=== PATIENT | female | born 1945 | race Caucasian/White ===

== ENCOUNTER → 2016-06-27 | Outpatient (CLI) | payer MEDICARE, BC ==
[~2016-06-27] MED LIST: 00186-0372-20 IH; ASPIRIN 32325 MG/TAB PO; ASPIRIN E.C. 8181 MG PO; CELEXA40 MG PO; CITALOPRAM20 MG PO; FORTAMET500 MG PO; GABAPENTIN PO; GABAPENTIN TAB600 MG PO; GABAPENTIN600 MG PO; GLUCOPHAGE1000 MG PO; IMDUR30 MG PO; LIPITOR 80MG80 MG PO; LIPITOR20 MG PO; LIPITOR40 MG PO; LISINOPRIL20 MG PO; LISINOPRIL40 MG PO; METFORMIN HCL500 MG PO; METFORMIN1000 MG PO; METOPROLOL50 MG PO; NEURONTIN600 MG PO; NEURONTIN600 MG/TAB PO; NIASPAN 500MG500 MG PO; NORVASC 5MG5 MG/TAB PO; NORVASC2.5 MG PO; OSTEO-BI-FLEX 21 TAB PO; PEPCID AC20 MG PO; PRIL40 PO; PRO-AIR; PROVENTIL0.09 MG/A1 IH; PROZAC 20MG20 MG PO; PROZAC20 MG PO; PROZAC40 MG PO; REMERON 15M15 MG/TAB PO; REMERON15 MG PO; SINGULAIR10 MG PO; SYMBICORT1 AE2 IH; TOPROL XL25 MG PO; TRAMADOL50 MG PO; ULTRAM 50MG TAB50 MG PO; ULTRAM50 MG PO; VANCOCIN H250 MG/CAP PO; XANAX .25M0.25 MG/TA PO; ZESTRIL40 MG PO; ZOFRAN 4MG T4 MG/TAB PO
== END ==
LOC: COL.RAD 10:33
DX: N28.9 Disorder of kidney and ureter, unspecified (principal)

== ENCOUNTER → 2017-05-07 | Outpatient (CLI) | payer MEDICARE, BC | LOC: MC.RAD 09:12 | DX: Z12.31 Encounter for screening mammogram for malignant neoplasm of breast (principal) ==

== ENCOUNTER 2017-08-31 12:18 | Emergency (ER) | payer MEDICARE, BC ==
[~2017-08-31] VITALS: Ht 162.6 cm; Wt 87.7 kg
[2017-08-31 12:21] VITALS: TEMP 99
[2017-08-31 14:14] LABS: BASO % 0.4 % (0.0-2.0); EOS # 0.1 (0.0-0.7); EOS % 1.5 % (0-4.0); GRAN # 2.7 (1.4-6.5); GRAN % 57.5 % (42.2-75.2); LYMPH # 1.4 (1.2-3.4); LYMPH % 30.5 % (20.0-51.0); MEAN CELL VOLUME 88 fl (80.0-100.0); MEAN CORPUSCULAR HGB CONC 34 g/dl (33.0-37.0); MEAN PLATELET VOLUME 11.3 fl (7.4-10.4); MONO # 0.5 (0.1-0.6); MONO % 9.9 % (1.7-9.3); PLATELET COUNT 163 K/mm3 (130-400); RED BLOOD COUNT 3.94 M/mm3 (4.10-5.30); REDCELL DISTRIBUTION WIDTH-CV 12.5 % (11.5-14.5)
[2017-08-31 14:15] LABS: HEMATOCRIT 34.8 % (37.0-47.0); HEMOGLOBIN 11.8 g/dl (12.5-16.0); MEAN CORPUSCULAR HEMOGLOBIN 30 pg (27.0-31.0)
[2017-08-31 14:28] LABS: ALANINE AMINOTRANSFERASE 33 U/L (9-52); ALBUMIN 3.7 gm/dL (3.5-5.0); ALKALINE PHOSPHATASE 84 U/L (50-136); ANION GAP 12 mmol/L (7-16); AST,SGOT 25 U/L (15-37); BILIRUBIN,TOTAL 0.7 mg/dL (0.0-1.0); BLOOD UREA NITROGEN 12 mg/dL (7-17); CALCIUM 8.9 mg/dL (8.4-10.2); CARBON DIOXIDE 29 mmol/L (22-30); CHLORIDE 100 mmol/L (98-107); CREATININE, serum 1.14 mg/dL (0.52-1.25); GLUCOSE 86 mg/dL (74-106); LIPASE 163 U/L (23-300); POTASSIUM 3.8 mmol/L (3.4-5.0); SODIUM 141 mmol/L (137-145); TOTAL PROTEIN 6.8 gm/dL (6.4-8.2)
[2017-08-31 14:34] LABS: COLLECTION METHOD CLEAN CATCH
[2017-08-31 14:39] LABS: C-REACTIVE PROTEIN < 0.5 mg/dL (0.0-0.9); TROPONIN-I < 0.012 ng/mL (0.000-0.034)
[2017-08-31 14:41] LABS: PH 6 (5-8); SQUAMOUS EPITHELIAL 0-2 /hpf; URINE APPEARANCE Clear; URINE BACTERIA None Seen /hpf; URINE BILIRUBIN Negative (NEGATIVE); URINE BLOOD Negative (NEGATIVE); URINE COLOR Straw; URINE GLUCOSE Negative (NEGATIVE); URINE KETONE Negative (NEGATIVE); URINE LEUKOCYTE ESTERASE Negative (NEGATIVE); URINE NITRATE Negative (NEGATIVE); URINE PROTEIN(semi-quant) Negative (NEGATIVE); URINE RBC 0-2 /hpf; URINE UROBILINOGEN Negative (NEGATIVE)
[2017-08-31] MEDS ORDERED: ZOFRAN 4MG T4 MG/TAB PO (15:26)
[2017-08-31] MEDS ORDERED: ANTIVERT 25MG25 MG PO (15:26)
[2017-08-31 16:00] VITALS: BP 149/82; PULSE 72
== END 2017-08-31 16:17 | disposition home or self-care (01) ==
LOC: COL.ER 12:18
PROVIDERS: Emergency Medicine
DX: R11.2 Nausea with vomiting, unspecified (principal); R42 Dizziness and giddiness; I10 Essential (primary) hypertension; E11.9 Type 2 diabetes mellitus without complications; F41.9 Anxiety disorder, unspecified; F32.9 Major depressive disorder, single episode, unspecified; Z79.84 Long term (current) use of oral hypoglycemic drugs; Z79.82 Long term (current) use of aspirin; Z79.52 Long term (current) use of systemic steroids
CPT/HCPCS: J2060; J2405; J7030

== ENCOUNTER 2017-09-02 08:47 | Emergency (ER) | payer MEDICARE, BC ==
[~2017-09-02] VITALS: Ht 162.6 cm; Wt 87.7 kg
[~2017-09-02 08:47] MED LIST changes: +ANTIVERT 25MG25 MG PO
[2017-09-02] MEDS ORDERED: EFFEXOR 75M75 MG/TAB PO (08:56)
[2017-09-02 09:47] LABS: BASO % 0.4 % (0.0-2.0); EOS # 0.1 (0.0-0.7); EOS % 1.7 % (0-4.0); GRAN # 3.6 (1.4-6.5); GRAN % 68.9 % (42.2-75.2); HEMATOCRIT 33.3 % (37.0-47.0); HEMOGLOBIN 11.7 g/dl (12.5-16.0); LYMPH % 20.1 % (20.0-51.0); MEAN CELL VOLUME 86 fl (80.0-100.0); MEAN CORPUSCULAR HEMOGLOBIN 30 pg (27.0-31.0); MEAN CORPUSCULAR HGB CONC 35 g/dl (33.0-37.0); MEAN PLATELET VOLUME 11.2 fl (7.4-10.4); MONO # 0.5 (0.1-0.6); MONO % 8.7 % (1.7-9.3); PLATELET COUNT 168 K/mm3 (130-400); RED BLOOD COUNT 3.86 M/mm3 (4.10-5.30); REDCELL DISTRIBUTION WIDTH-CV 12.4 % (11.5-14.5)
[2017-09-02 09:58] LABS: ALANINE AMINOTRANSFERASE 38 U/L (9-52); ALBUMIN 3.6 gm/dL (3.5-5.0); ALKALINE PHOSPHATASE 74 U/L (50-136); ANION GAP 11 mmol/L (7-16); AST,SGOT 34 U/L (15-37); BILIRUBIN,TOTAL 0.6 mg/dL (0.0-1.0); BLOOD UREA NITROGEN 12 mg/dL (7-17); CALCIUM 9.2 mg/dL (8.4-10.2); CARBON DIOXIDE 28 mmol/L (22-30); CHLORIDE 101 mmol/L (98-107); CREATININE, serum 1.19 mg/dL (0.52-1.25); GLUCOSE 99 mg/dL (74-106); LIPASE 97 U/L (23-300); POTASSIUM 3.5 mmol/L (3.4-5.0); SODIUM 140 mmol/L (137-145); TOTAL PROTEIN 6.6 gm/dL (6.4-8.2)
[2017-09-02 09:59] LABS: C-REACTIVE PROTEIN < 0.5 mg/dL (0.0-0.9)
[2017-09-02 10:08] LABS: TROPONIN-I < 0.012 ng/mL (0.000-0.034)
[2017-09-02 12:02] VITALS: BP 150/69; PULSE 64; TEMP 99.1
== END 2017-09-02 11:57 | disposition home or self-care (01) ==
LOC: COL.ER 08:47
PROVIDERS: Emergency Medicine
DX: R19.7 Diarrhea, unspecified (principal); R11.10 Vomiting, unspecified; R42 Dizziness and giddiness; I10 Essential (primary) hypertension; E11.9 Type 2 diabetes mellitus without complications; J45.909 Unspecified asthma, uncomplicated; F41.9 Anxiety disorder, unspecified; F32.9 Major depressive disorder, single episode, unspecified; Z79.84 Long term (current) use of oral hypoglycemic drugs; Z79.52 Long term (current) use of systemic steroids; Z79.82 Long term (current) use of aspirin
CPT/HCPCS: J2405; J7030

== ENCOUNTER → 2017-12-17 | Outpatient (CLI) | payer MEDICARE, BC ==
[~2017-12-17] MED LIST changes: +EFFEXOR 75M75 MG/TAB PO
== END ==
LOC: COL.RAD 09:02
DX: R91.8 Other nonspecific abnormal finding of lung field (principal); R59.0 Localized enlarged lymph nodes
CPT/HCPCS: Q9967

== ENCOUNTER → 2018-06-04 | Outpatient (CLI) | payer MEDICARE, BC | LOC: MC.RAD 10:40 | DX: Z12.31 Encounter for screening mammogram for malignant neoplasm of breast (principal) ==

== ENCOUNTER → 2019-07-22 | Outpatient (CLI) | payer MEDICARE, BC | LOC: MC.RAD 11:10 | DX: Z12.31 Encounter for screening mammogram for malignant neoplasm of breast (principal) ==

== ENCOUNTER 2020-10-01 09:10 | Day surgery (SDC) | payer MEDICARE, BC ==
[2020-10-01] VITALS (10 sets, daily range): BP systolic 109–164; BP diastolic 51–97; PULSE 50–63; TEMP 98.3
[~2020-10-01] VITALS: Ht 165.1 cm; Wt 94.5 kg
[2020-10-01] MEDS ORDERED: LOTRISONE CREAM15 GM TP (10:28)
[2020-10-01] MEDS ORDERED: NORCO 325 MG-51 TAB PO (10:29)
[2020-10-01] MEDS ORDERED: ATARAX 25MG25 MG/TAB PO (10:30)
[2020-10-01] MEDS ORDERED: DESYREL 100MG100 MG PO (10:31)
[2020-10-01] MEDS ORDERED: REQUIP 0.5MG0.5 MG PO (10:31)
[2020-10-01] MEDS ORDERED: VITAMIN D31000 I1 PO (10:37)
[2020-10-01] MEDS ORDERED: B-121000 MCG PO (10:37)
[2020-10-01 10:40] LABS: MEAN CELL VOLUME 92 fl (80.0-100.0); MEAN CORPUSCULAR HEMOGLOBIN 31 pg (27.0-31.0); MEAN CORPUSCULAR HGB CONC 33 g/dl (33.0-37.0); MEAN PLATELET VOLUME 10.5 fl (7.4-10.4); PLATELET COUNT 204 K/mm3 (130-400); RED BLOOD COUNT 3.92 M/mm3 (4.10-5.30); REDCELL DISTRIBUTION WIDTH-CV 12.4 % (11.5-14.5)
[2020-10-01 10:45] LABS: PROTHROMBIN TIME 11.2 SECONDS (9.7-12.8)
[2020-10-01 10:48] LABS: CALCIUM 9.2 mg/dL (8.4-10.2); CREATININE, serum 1.52 (0.52-1.25); POTASSIUM 4.6 mmol/L (3.4-5.0)
--- NOTE | 2020-10-01 11:40 | NUR ---
Report from Xu OAKLEY. Transferred from label paster by bed. Alert and oriented, denies pain and needs at this time, daughter bedside. Right Tband with 10 cc air CD&I, good pulses and cap refill < 3 secs noted. VSS.
--- NOTE | 2020-10-01 14:25 | NUR ---
10 cc air released from right Tband and dressing applied. INT discontinued intact.
--- NOTE | 2020-10-01 14:57 | NUR ---
Discharge instructions given. Transferred to private car by amilcar
== END 2020-10-01 14:57 | disposition home or self-care (01) ==
LOC: COL.CAR 09:10
PROVIDERS: Internal Medicine Cardiovascular Disease
DX: R94.39 Abnormal result of other cardiovascular function study (principal); I08.1 Rheumatic disorders of both mitral and tricuspid valves; E11.22 Type 2 diabetes mellitus with diabetic chronic kidney disease; I12.9 Hypertensive chronic kidney disease with stage 1 through stage 4 chronic kidney disease, or unspecified chronic kidney disease; N18.30 Chronic kidney disease, stage 3 unspecified; E11.40 Type 2 diabetes mellitus with diabetic neuropathy, unspecified; Z20.822 Contact with and (suspected) exposure to COVID-19; E78.2 Mixed hyperlipidemia; G25.81 Restless legs syndrome; E78.00 Pure hypercholesterolemia, unspecified; Z79.82 Long term (current) use of aspirin; Z79.899 Other long term (current) drug therapy; Z80.3 Family history of malignant neoplasm of breast; Z87.891 Personal history of nicotine dependence; Z79.84 Long term (current) use of oral hypoglycemic drugs
CPT/HCPCS: C1769; J1644; J2250; J3010; Q9967

== ENCOUNTER 2022-07-06 15:15 | Emergency (ER) | payer MEDICARE, BC ==
[~2022-07-06] VITALS: Ht 162.6 cm; Wt 87.7 kg
[~2022-07-06 15:15] MED LIST changes: +ATARAX 25MG25 MG/TAB PO; +B-121000 MCG PO; +DESYREL 100MG100 MG PO; +LOTRISONE CREAM15 GM TP; +NORCO 325 MG-51 TAB PO; +REQUIP 0.5MG0.5 MG PO; +VITAMIN D31000 I1 PO
[2022-07-06 15:19] VITALS: TEMP 98.4
[2022-07-06 16:00] LABS: BASO % 0.5 % (0.0-2.0); EOS # 0.2 K/mm3 (0.0-0.7); EOS % 3.1 % (0.0-4.0); GRAN # 3.8 K/mm3 (1.4-6.5); GRAN % 60.3 % (42.2-75.2); HEMATOCRIT 37.2 % (37.0-47.0); HEMOGLOBIN 12.5 g/dl (12.5-16.0); LYMPH # 1.6 K/mm3 (1.2-3.4); LYMPH % 25.3 % (20.0-51.0); MEAN CELL VOLUME 92 fl (80.0-100.0); MEAN CORPUSCULAR HEMOGLOBIN 31 pg (27-31); MEAN CORPUSCULAR HGB CONC 34 g/dl (33.0-37.0); MONO # 0.7 K/mm3 (0.1-0.6); MONO % 10.6 % (1.7-9.3); PLATELET COUNT 237 K/mm3 (130-400); RED BLOOD COUNT 4.04 M/mm3 (4.10-5.30); REDCELL DISTRIBUTION WIDTH-CV 12.2 % (11.5-14.5)
[2022-07-06 16:03] LABS: ALBUMIN 3.9 gm/dL (3.4-4.8); BILIRUBIN,TOTAL 0.5 mg/dL (0.2-1.2); CALCIUM 9.9 mg/dL (8.4-10.2); CREATININE, serum 1.88 mg/dL (0.57-1.11); POTASSIUM 5.1 mmol/L (3.5-4.5); TOTAL PROTEIN 7.1 gm/dL (6.2-8.1)
[2022-07-06 16:08] LABS: TROPONIN-I 0.017 ng/mL (0.00-0.033)
[2022-07-06 17:05] LABS: COLLECTION METHOD CLEAN CATCH
[2022-07-06 17:10] LABS: URINE APPEARANCE Clear (CLEAR/HAZY); URINE BLOOD Negative (NEGATIVE); URINE COLOR Yellow (YELLOW); URINE GLUCOSE Negative (NEGATIVE); URINE KETONE TRACE (NEGATIVE); URINE NITRATE Negative (NEGATIVE); URINE PROTEIN(semi-quant) TRACE (NEGATIVE); URINE UROBILINOGEN 0.2 E.U/dL (0.2-1.0)
[2022-07-06 17:27] LABS: MUCOUS Present (NOT PRESENT); URINE BACTERIA None Seen /hpf (NONE SEEN); URINE RBC 0-2 /hpf (0-2)
[2022-07-06 18:04] VITALS: BP 156/78; PULSE 60
== END 2022-07-06 18:05 | disposition home or self-care (01) ==
LOC: COL.ER 15:15
PROVIDERS: Physician Assistant
DX: I95.1 Orthostatic hypotension (principal); I12.9 Hypertensive chronic kidney disease with stage 1 through stage 4 chronic kidney disease, or unspecified chronic kidney disease; E11.22 Type 2 diabetes mellitus with diabetic chronic kidney disease; N18.30 Chronic kidney disease, stage 3 unspecified; W19.XXXA Unspecified fall, initial encounter; Y92.531 Health care provider office as the place of occurrence of the external cause
CPT/HCPCS: J7030

== ENCOUNTER 2023-09-12 11:21 | Inpatient (IN) | payer MEDICARE, BC ==
[~2023-09-12] VITALS: Ht 154.9 cm; Wt 77.9 kg
[~2023-09-12 11:21] MED LIST changes: -GLUCOPHAGE1000 MG PO; +GLUCOPHAGE500 MG/TAB PO; +ZESTRIL 20MG TA20 MG PO; -ZESTRIL40 MG PO
[2023-09-26] VITALS (8 sets, daily range): BP systolic 110–133; BP diastolic 64–84; PULSE 72–95; TEMP 97.6–98.3
[2023-09-26] MEDS ORDERED: NS Flush 10 ML SYRINGE PRN ICA (09:15)
[2023-09-26] MEDS ORDERED: Sotalol 80 MG TAB PO BID PO SCH (09:15)
[2023-09-26 09:38] LABS: BASO % 0.6 % (0.0-2.0); EOS # 0.2 K/mm3 (0.0-0.7); EOS % 3.1 % (0.0-4.0); GRAN # 4.6 K/mm3 (1.4-6.5); GRAN % 66.9 % (42.2-75.2); HEMATOCRIT 39.8 % (37.0-47.0); HEMOGLOBIN 13.5 g/dl (12.5-16.0); LYMPH # 1.4 K/mm3 (1.2-3.4); LYMPH % 20.9 % (20.0-51.0); MEAN CELL VOLUME 91 fl (80.0-100.0); MEAN CORPUSCULAR HEMOGLOBIN 31 pg (27-31); MEAN CORPUSCULAR HGB CONC 34 g/dl (33.0-37.0); MEAN PLATELET VOLUME 11.3 fl (7.4-10.4); MONO # 0.6 K/mm3 (0.1-0.6); MONO % 8.2 % (1.7-9.3); PLATELET COUNT 183 K/mm3 (130-400); RED BLOOD COUNT 4.36 M/mm3 (4.10-5.30); REDCELL DISTRIBUTION WIDTH-CV 12.4 % (11.5-14.5)
[2023-09-26 09:44] LABS: INR 1.8 (0.8-3.0); PROTHROMBIN TIME 18.9 SECONDS (9.7-12.8)
[2023-09-26 10:01] LABS: ALBUMIN 3.3 g/dL (3.4-4.8); BILIRUBIN,TOTAL 0.4 mg/dL (0.2-1.2); CALCIUM 9.9 mg/dL (8.4-10.2); CREATININE, serum 1.7 mg/dL (0.57-1.11); MAGNESIUM 1.6 mg/dL (1.6-2.6); POTASSIUM 3.9 mEq/L (3.5-4.5); TOTAL PROTEIN 6.5 g/dl (6.2-8.1)
[2023-09-26] MEDS ORDERED: LASIX 20MG TABL20 MG PO (10:26)
[2023-09-26] MEDS ORDERED: ELIQUIS 5MG PO (10:26)
[2023-09-26] MEDS ORDERED: MAG-OX 400400 MG/TAB PO (10:30)
[2023-09-26] MEDS ORDERED: OSTEO-BI-FLEX 21 TAB PO (10:31)
[2023-09-26] MEDS ORDERED: EFFEXOR XR75 MG/CAP PO (10:34)
[2023-09-26] MEDS ORDERED: EFFEXOR-XR150 MG PO (10:34)
[2023-09-26] MEDS ORDERED: Temazepam 15 MG CAP PO PRN (11:45)
[2023-09-26] MEDS ORDERED: hydrOXYzine HCl 25 MG TAB PO PRN (11:45)
[2023-09-26] MEDS ORDERED: Docusate Sodium 100 MG CAP PO PRN (11:45)
[2023-09-26] MEDS ORDERED: traMADol 50 MG TAB PO PRN (11:45)
[2023-09-26] MEDS ORDERED: REQUIP 0.5MG0.5 MG PO (12:24)
--- NOTE | 2023-09-26 13:36 | NUR ---
Patient admitted to room 351 at approximately 0815 for Sotalol iniation. 3 . Tele on. IV started to LFA by ADIN Christine x1 attempt. This nurse attempted x2 but unsuccessful. EKG completed and labs drawm and completed prior to inital Sotalol dose. Pt denies pain or needs. Independent in room.
[2023-09-26] MEDS ORDERED: Gabapentin 300 MG CAP PO SCH (14:00)
--- NOTE | 2023-09-26 19:43 | NUR ---
Pt sitting up in chair watching tv. Denies pain or needs. Bedside report given to ADIN Mcgraw.
[2023-09-26] MEDS ORDERED: Apixaban 5 MG TAB PO SCH (21:00)
[2023-09-26] MEDS ORDERED: NS Flush 10 ML SYRINGE BID ICA SCH (21:00)
[2023-09-26] MEDS ORDERED: traZODone 100 MG TAB PO SCH (21:00)
[2023-09-26] MEDS ORDERED: BETAMETHASONE TP SCH (21:00)
[2023-09-26] MEDS ORDERED: CLOTRIMAZOLE TP SCH (21:00)
[2023-09-26] MEDS ORDERED: Lisinopril 20 MG TAB PO SCH (21:00)
--- NOTE | 2023-09-26 21:47 | NUR ---
Shift assessment complete. Patient denies any chest pain, palpitations, shortness of breath at this time. Currently stable on room air. She is alert and oriented. Call light is within reach. Bed is locked and in low position.
[2023-09-27] VITALS (12 sets, daily range): BP systolic 98–139; BP diastolic 56–82; PULSE 62–88; TEMP 97.5–98.2
[2023-09-27 07:09] LABS: BASO % 0.3 % (0.0-2.0); EOS # 0.3 K/mm3 (0.0-0.7); EOS % 5.7 % (0.0-4.0); GRAN # 3.3 K/mm3 (1.4-6.5); GRAN % 55.3 % (42.2-75.2); HEMATOCRIT 38.7 % (37.0-47.0); HEMOGLOBIN 13.2 g/dl (12.5-16.0); LYMPH # 1.8 K/mm3 (1.2-3.4); LYMPH % 29.7 % (20.0-51.0); MEAN CELL VOLUME 92 fl (80.0-100.0); MEAN CORPUSCULAR HEMOGLOBIN 31 pg (27-31); MEAN CORPUSCULAR HGB CONC 34 g/dl (33.0-37.0); MEAN PLATELET VOLUME 12.1 fl (7.4-10.4); MONO # 0.5 K/mm3 (0.1-0.6); MONO % 8.8 % (1.7-9.3); PLATELET COUNT 160 K/mm3 (130-400); RED BLOOD COUNT 4.21 M/mm3 (4.10-5.30); REDCELL DISTRIBUTION WIDTH-CV 12.5 % (11.5-14.5)
[2023-09-27 07:35] LABS: CALCIUM 9.5 mg/dL (8.4-10.2); CREATININE, serum 1.52 mg/dL (0.57-1.11); POTASSIUM 3.9 mEq/L (3.5-4.5)
--- NOTE | 2023-09-27 08:55 | NUR ---
Waste Elimination met with patient to discuss discharge planning. Patient lives alone in [place] and sees Dr. Desai for primary care. Patient gets her medications delivered to her home by [facility]. Patient mostly uses a cane for ambulation and also has a walker available at home. Patient stated she is normally independent with ADLS, however does not do any driving. Patient stated she uses "[facility]" ([email or web address]) for transportation needs. Patient advised her daughter, Aurelia (ph#[phone]) is her DPOA-HC. Patient plans to return home at time of discharge. Discharge Plan; Home
[2023-09-27] MEDS ORDERED: Cholecalciferol (Vit D3) 1000 Units TAB PO SCH (09:00)
[2023-09-27] MEDS ORDERED: Citalopram 20 MG TAB PO SCH (09:00)
[2023-09-27] MEDS ORDERED: metFORMIN 500 MG TAB PO SCH (09:00)
[2023-09-27] MEDS ORDERED: Furosemide 20 MG TAB PO SCH (09:00)
[2023-09-27] MEDS ORDERED: Magnesium Oxide 400 MG TAB PO SCH (09:00)
[2023-09-27] MEDS ORDERED: Cyanocobalamin (Vit B-12) 1,000 MCG TAB PO SCH (09:00)
--- NOTE | 2023-09-27 11:54 | NUR ---
Data: Communications Project Lead visit attempted during Communications Project Lead rounds. Assessment: Patient was sleeping. Plan of Care: Chaplains will remain available as needed/requested while Patient is admitted to this hospital.
--- NOTE | 2023-09-27 12:01 | NUR ---
Patient alert and oriented x4. Shift assessment complete this morning. Patient denies pain. Activity at baseline. Tolerating PO intake well. Education provided on cardioversion tomorrow morning. Heart rate regular, rhythm noted to be irregular. Call light within reach, all needs met at this time.
--- NOTE | 2023-09-27 14:01 | NUR ---
Initial visit; Patient thanked Chemical Lab Supervisor for looking in on her and offering God's blessings and to keep her in Chemical Lab Supervisor's prayers tomorrow when she has her heart shocked. Her daughter was also present and very nice. Chemical Lab Supervisor wished them well.
[2023-09-27] MEDS ORDERED: LR 1,000 ML IV SCH ×2 (15:45→16:30)
--- NOTE | 2023-09-27 21:30 | NUR ---
Patient resting in bed. Denies any pain. Needs met. Assessment complete. IV in left hand flushes easily with no complications. Call light and personal items in reach. Bed in low position.
[2023-09-28] VITALS (14 sets, daily range): BP systolic 94–144; BP diastolic 60–92; PULSE 47–91; TEMP 97.6–98.3
--- NOTE | 2023-09-28 05:45 | NUR ---
Patient resting in bed with eyes closed. Respirations even and unlabored. No signs of pain or needs at this time. Patient has been NPO since 0000 for cardioversion today. No changes over night. Call light and personal items in reach. Bed in low position.
[2023-09-28 07:46] LABS: BASO % 0.8 % (0.0-2.0); EOS # 0.3 K/mm3 (0.0-0.7); EOS % 6.1 % (0.0-4.0); GRAN # 2.6 K/mm3 (1.4-6.5); GRAN % 50.7 % (42.2-75.2); HEMATOCRIT 39.4 % (37.0-47.0); HEMOGLOBIN 13.3 g/dl (12.5-16.0); LYMPH # 1.7 K/mm3 (1.2-3.4); LYMPH % 32.9 % (20.0-51.0); MEAN CELL VOLUME 92 fl (80.0-100.0); MEAN CORPUSCULAR HEMOGLOBIN 31 pg (27-31); MEAN CORPUSCULAR HGB CONC 34 g/dl (33.0-37.0); MEAN PLATELET VOLUME 11.9 fl (7.4-10.4); MONO # 0.5 K/mm3 (0.1-0.6); MONO % 9.3 % (1.7-9.3); PLATELET COUNT 168 K/mm3 (130-400); RED BLOOD COUNT 4.29 M/mm3 (4.10-5.30); REDCELL DISTRIBUTION WIDTH-CV 12.5 % (11.5-14.5)
[2023-09-28 08:03] LABS: CALCIUM 9.2 mg/dL (8.4-10.2); CREATININE, serum 1.53 mg/dL (0.57-1.11); POTASSIUM 3.7 mEq/L (3.5-4.5)
--- NOTE | 2023-09-28 10:50 | NUR ---
Follow-up: Patient and Shop Service Technician shared a short conversation and Shop Service Technician reassured Corin she is in wonderful hands with Dr. Duncan who will be performing her "Procedure."
--- NOTE | 2023-09-28 11:35 | NUR ---
PAITENT AWAKE AND ALERT, SITTING UP IN BED. PATIENT DENIES ANY NEEDS OR COMPLAINTS A THIS TIME, PATIENT AWARE OF NPO STATUS. CALL LIGHT WITHIN REACH.
[2023-09-28] MEDS ORDERED: Lidocaine PF 2% (20 MG/ML) 5 ML VIAL ONE (12:00)
[2023-09-28] MEDS ORDERED: Atropine 1 MG/10 ML SYRINGE IV SCH (12:49)
--- NOTE | 2023-09-28 12:54 | NUR ---
UPDATE GIVEN TO THIS RN REGARDING PATIENT STATUS IN CONSERVATION SPECIALIST. RN PASSED INFO ON TO CHARGE.
[2023-09-28] MEDS ORDERED: ceFAZolin 1 G in Water For Injection,Sterile 10 ML IV SCH ×2 (13:15→15:59)
[2023-09-28] MEDS ORDERED: 1/2 NS 1,000 ML IV SCH (13:15)
[2023-09-28] MEDS ORDERED: Hydrocortisone 1% Cream 30 GM TUBE TP PRN (13:15)
--- NOTE | 2023-09-28 14:10 | NUR ---
SEE MERGE FOR PROCEDURE DOCUMENTATION
[2023-09-28] MEDS ORDERED: NS 1,000 ML IV.SOLN. IR SCH (14:24)
[2023-09-28] MEDS ORDERED: Midazolam 2 MG/2 ML VIAL IV SCH (14:26)
[2023-09-28] MEDS ORDERED: fentaNYL 50 MCG/ML 2 ML VIAL IV SCH (14:27)
[2023-09-28] MEDS ORDERED: Topical Skin Adhesive 1 EACH (1 ML) TOP ONE (14:35)
--- NOTE | 2023-09-28 15:20 | NUR ---
PATIENT AWAKE AND ALERT, SITTING UP IN RECLINER, FAMILY MEMBER AT BEDSIDE.. PAIENT DENIES ANY PAIN, NEEDS OR COMPLAINTS AT THIS TIME. FALL PRECATIONS IN PLACE. CALL LIGHT WIHTIN REACH. PATINET APPEARS TO BE IN A PLEASANT MOOD.
--- NOTE | 2023-09-28 15:20 | NUR ---
PIETRO ARRIVED AWAKE AND ALERT, FROM PACU. POST OP VITALS INITIATED, VSS. PATIENTS PM SITE DRESSING CDI, ICE PLACED TO SITE. PATIENT DENIES ANY NEEDS OR COMPLAINTS AT THIS TIME. CALL LIGHT WITHIN REACH BED ALARM ON
[2023-09-28] MEDS ORDERED: Cephalexin 500 MG CAP PO SCH (21:00)
--- NOTE | 2023-09-28 21:00 | NUR ---
Initial shift assessment done- denies pain at this time, sling on left arm, chest dressing dry and intact, ice to site, Tele on paced 60/min,, Up to bathroom with assist, HS snack given, no other requests. Did page Dr. Duncan regarding sotalol due to EKG in lab manager had QTC at 525 {this was when in lab manager SB,junctional} did not answer, talked with pumping station supervisor and I ordered a EKG at this time post pacemaker per protocol - QTC now 484 so sotalol given as ordered tonight. VSS.
[2023-09-29] VITALS: BP 128/51; PULSE 60; TEMP 98.1
[2023-09-29 00:28] VITALS: BP_SYST 128
[2023-09-29 03:41] VITALS: BP 148/75; PULSE 64; TEMP 98.5
[2023-09-29 05:23] VITALS: BP_SYST 148
--- NOTE | 2023-09-29 05:34 | NUR ---
Quiet night-- did give a sleeping pill earlier tonight and did help pt sleep- VSS, pacemaker site dry and intact- some edema/bruising noted. VSS. tele on- paced.
[2023-09-29 06:53] LABS: BASO % 0.5 % (0.0-2.0); EOS # 0.3 K/mm3 (0.0-0.7); EOS % 3.9 % (0.0-4.0); GRAN # 3.8 K/mm3 (1.4-6.5); GRAN % 60.3 % (42.2-75.2); HEMATOCRIT 39.4 % (37.0-47.0); HEMOGLOBIN 13.3 g/dl (12.5-16.0); LYMPH # 1.6 K/mm3 (1.2-3.4); LYMPH % 25.6 % (20.0-51.0); MEAN CELL VOLUME 92 fl (80.0-100.0); MEAN CORPUSCULAR HEMOGLOBIN 31 pg (27-31); MEAN CORPUSCULAR HGB CONC 34 g/dl (33.0-37.0); MEAN PLATELET VOLUME 11.8 fl (7.4-10.4); MONO # 0.6 K/mm3 (0.1-0.6); MONO % 9.5 % (1.7-9.3); PLATELET COUNT 166 K/mm3 (130-400); RED BLOOD COUNT 4.27 M/mm3 (4.10-5.30); REDCELL DISTRIBUTION WIDTH-CV 12.6 % (11.5-14.5)
[2023-09-29 07:01] VITALS: BP 153/81; PULSE 60; TEMP 98.2
--- NOTE | 2023-09-29 07:15 | NUR ---
PATINET AWAKE AND ALER, SITTING UP IN BED. PATIENT DENIES ANY NEEDS ORCCOMPLAINTS AT THIS TIME. CALL LIGHT WITHIN REACH, BED ALARM ON.
[2023-09-29 07:17] LABS: CALCIUM 9.5 mg/dL (8.4-10.2); CREATININE, serum 1.79 mg/dL (0.57-1.11); POTASSIUM 3.8 mEq/L (3.5-4.5)
--- NOTE | 2023-09-29 07:20 | NUR ---
PATIENT CXR AND PM DOWLOAD COMPLETE.
[2023-09-29 11:22] VITALS: BP 121/70; PULSE 55; TEMP 97.6
[2023-09-29] MEDS ORDERED: BETAPACE 120MG120 MG PO (12:03)
[2023-09-29] MEDS ORDERED: CEPHALEXIN500 M1 PO (12:03)
--- NOTE | 2023-09-29 12:45 | NUR ---
SAMARIANET TAKEN TO ER ENTRANCE VIA WHEELCHAIR BY PCT WHERE SHE LEFT IN STABLE CONDITION WITH HER FRIEND.
[2023-09-29] MEDS ORDERED: Cephalexin 500 MG CAP PO SCH (21:00)
== END 2023-09-29 13:18 | disposition home or self-care (01) | DRG 244 ==
LOC: MEDICAL 09-26 08:12
PROVIDERS: ADMIT Internal Medicine Cardiovascular Disease
PROC: 0JH606Z Insertion of Pacemaker, Dual Chamber into Chest Subcutaneous Tissue and Fascia, Open Approach (ICD-10-PCS; principal; 2023-09-28)
PROC: 02H63JZ Insertion of Pacemaker Lead into Right Atrium, Percutaneous Approach (ICD-10-PCS; 2023-09-28)
PROC: 02HK3JZ Insertion of Pacemaker Lead into Right Ventricle, Percutaneous Approach (ICD-10-PCS; 2023-09-28)
PROC: 5A2204Z Restoration of Cardiac Rhythm, Single (ICD-10-PCS; 2023-09-28)
DX: I48.0 Paroxysmal atrial fibrillation (principal); I49.5 Sick sinus syndrome; I45.10 Unspecified right bundle-branch block; M85.80 Other specified disorders of bone density and structure, unspecified site; G47.33 Obstructive sleep apnea (adult) (pediatric); F41.9 Anxiety disorder, unspecified; G25.81 Restless legs syndrome; E11.40 Type 2 diabetes mellitus with diabetic neuropathy, unspecified; E11.22 Type 2 diabetes mellitus with diabetic chronic kidney disease; I12.9 Hypertensive chronic kidney disease with stage 1 through stage 4 chronic kidney disease, or unspecified chronic kidney disease; N18.30 Chronic kidney disease, stage 3 unspecified; I08.1 Rheumatic disorders of both mitral and tricuspid valves; E78.5 Hyperlipidemia, unspecified; D86.9 Sarcoidosis, unspecified; Z86.73 Personal history of transient ischemic attack (TIA), and cerebral infarction without residual deficits; Z23 Encounter for immunization
CPT/HCPCS: C1769; C1785; C1894; C1898; J0461; J0665-JZ; J0690; J2250; J2704; J3010; J7030